=== PATIENT | female | born 1980 | race Caucasian/White ===

== ENCOUNTER 2021-04-09 20:46 | Emergency (ER) | payer MEDICAID, SELFPAY ==
--- NOTE | 2021-04-09 20:46 | ED.RN ---
pt uncooperative, gave this nurse the middle finger when asked if she had the covid vaccination. pt being difficult when asked questions.
[2021-04-09 20:48] VITALS: BP 128/102; PULSE 116; RESP 16; TEMP 37.2; O2SAT 98; BMI 23.6
--- NOTE | 2021-04-09 21:13 | ED.RN ---
pt was walking in [place] prior to physician coming to see her. this RN asked pt where she was going and she said she was leaving. updated charge nurse and updated [place] [employer]. per triage pt was not suicidal and did not drive to hospital.
== END 2021-04-09 21:15 | disposition left against medical advice (07) ==
LOC: ED 21:25
PROVIDERS: Emergency Provider Student in an Organized Health Care Education/Training Program
DX: R69 Illness, unspecified (principal); Z53.21 Procedure and treatment not carried out due to patient leaving prior to being seen by health care provider
CPT/HCPCS: 99282

== ENCOUNTER 2021-04-19 04:43 | Emergency (ER) | payer MEDICAID, SELFPAY ==
[2021-04-19 04:44] VITALS: BP 158/104; PULSE 118; RESP 16; TEMP 36; O2SAT 97; BMI 24.7
--- NOTE | 2021-04-19 05:00 | EDS_ITS ---
HPI HPI - Psych History of Present Illness Chief Complaint: Mental Health Informant: patient and spouse/S.O. Narrative Narrative: Patient states she has had a history of significant anxiety for over a year and for multiple reasons it is out of control tonight. She presents at about 5 AM, apparently with some alcohol on board, saying that she wants help and she does not know what she wants otherwise but she does not want any drugs or medications. When asked if she wants to talk to a counselor, as I have crisis available right now but there is no one with social work at the hospital at 5 AM Tuesday night/Tuesday morning, she scuffs and states that they yawned in my ear on the phone. The patient states that she is a cutter and has a history of cutting her wrists multiple times to relieve stress, and she has not done that recently and wants help so that she does not cut. She denies any suicidality. She denies any physical symptoms or recent illness or injury. When discussing with her and her significant other, she wanted to come here on her own and was not forced. I advised her that at this time on this day, the resources I have in the emergency department to help her with anxiety include medications and counseling. [facility] Medical History Anxiety Depression Home Medications NK 04/19/21 [History Last Taken Unknown] Allergy/AdvReac Type Severity Reaction Status Date / Time pcn Allergy Other Uncoded 04/19/21 04:48 Surgical History History of cholecystectomy History of tonsillectomy Social History Smoking Status: Unknown if ever smoked ROS ROS ED Constitutional Constitutional ED: Denies chills or fever(s) Eyes Eyes: Denies change in vision or diplopia ENT ENT ED: Denies rhinorrhea or sore throat Cardiovascular Cardiovascular: Denies chest pain, lightheadedness, palpitations, racing heartbeat or radiating jaw, neck or arm pain Respiratory/Chest Respiratory/Chest: Denies cough or dyspnea Gastrointestinal Gastrointestinal: Denies abdominal pain, diarrhea, nausea or vomiting Genitourinary Genitourinary ED: Denies dysuria or hematuria Musculoskeletal Musculoskeletal: Denies back pain or neck pain Integumentary Denies abscess or rash Neurologic Neurologic: Denies headache(s), paresthesias or weakness Psychiatric Psychiatric: Reports anxiety and depression; Denies suicidal thoughts EXAM Physical Exam Const Vital Signs: 04/19/21 04:44 Temperature 96.8 F L Temperature Source Temporal Pulse Rate 118 H Respiratory Rate 16 Blood Pressure 158/104 H Blood Pressure Mean 122 Pulse Ox 97 Positive well nourished and well developed General Appearance ED: well developed and NAD HEENT Reports moist mucous membranes normocephalic and atraumatic Eyes PERRL and EOMs intact bilaterally Neck full ROM and supple Resp normal respiratory effort, no retractions and no use of accessory muscles Cardio regular rate, regular rhythm and no murmurs GI non-distended Palpation: soft Back/Spine normal ROM and normal to inspection Extremity normal to inspection General Extremety ED: Negative for edema, pulses abnormal or tenderness General Extremity: Negative for edema or pulses abnormal Neuro oriented x3, CN's II-XII intact bilaterally and no sensory deficits noted Sensorium / Orientation: awake and alert Motor Exam: strength 5/5 throughout Psych thought process normal, cooperative, speech normal, denies hallucinations, denies homicidal ideation and denies suicidal ideation Psych Narrative: Anxious, depressed affect, actively crying and tearful during evaluation. Occasionally consolable. Not psychotic. Appears possibly intoxicated. Skin no rashes or lesions noted and no wounds MDM MDM MDM Narrative Medical decision making narrative: The patient initially did not want to talk to crisis and did not want any medications. She takes no prescriptions and denies using any substances. As I advised the patient, I am not concerned about any acute medical problems given her lack of physical symptoms, but I have limited ways to help her with emotional and psychiatric problems at 5 AM on a weekend. Eventually she was amenable to speaking with crisis thinking maybe that will help her calm down. Prior to this occurring, she changed her mind and said that she would take a medication if it was offered to help her calm down. She was given Ativan 0.5 mg orally. After this and speaking with crisis, she is calm down and stable for discharge. Crisis gave her information for the intensive outpatient program which the patient is interested in, she agrees that the patient does not need any type of inpatient disposition at this time. Significant other is comfortable taking her home. Discharge Plan Triage Chief Complaint: Mental Health ED Provider: Fran Roberts Dx/Rx/DC Orders Clinical Impression: Anxiety Instructions: ED Anxiety Reaction Prescriptions: No Action NK RF: 0 Primary Care Provider: [facility] Doctor,Out of Referrals: Counseling,Center [GROUP OF PHYSICIANS] - 3-5 Days [facility] Doctor,Out of [Primary Care Provider] - Disposition Disposition: Home, Self Care
[2021-04-19] MEDS: LORazepam 0.5 MG Tablet PO (05:13)
== END 2021-04-19 05:56 | disposition home or self-care (01) ==
LOC: ED 05:55
PROVIDERS: Emergency Provider Emergency Medicine
DX: F41.9 Anxiety disorder, unspecified (principal); Z91.52 Personal history of nonsuicidal self-harm
CPT/HCPCS: 99283